=== PATIENT | male | born 1960 | race American Indian/Alaskan Native ===

== ENCOUNTER 2017-12-25 16:46 | Emergency (ER) | payer MEDICARE, OTHER ==
[2017-12-25 16:46] VITALS: BMI 20.1
[2017-12-25 16:52] VITALS: RESP 18; O2SAT 99
--- NOTE | 2017-12-25 18:05 | ED PDOC ---
Arrival/HPI - General Historian: Patient, Family - History of Present Illness Time/Duration: < week Symptom Onset: Sudden Symptom Course: Improving Activities at Onset: Other (drinking alcohol) <Min Levine - Last Filed: 12/25/17 19:11> - History of Present Illness Context: Home <Tommie Grant - Last Filed: 12/25/17 19:38> - General Chief Complaint: Trauma Time Seen by Provider: 12/25/17 17:03 - History of Present Illness Narrative History of Present Illness (Text): 12/25/17 17:59 57 year-old male with a PMH of gastric cancer (which has been in remission for 4 years) and alcoholic pancreatitis who presnts to the ED after he fell and hit the right side of his face and right shoulder on Saturday. Patient states prior to the fall, he had drank four 24oz beers. After falling, patient lost consciousness briefly but was able to wake up and walk home. Since Saturday, patient has been icing his face and states it is feeling better. He also states that his right shoulder pain is improving. He came in to seek treatment today because of his daughter who is concerned and insisted that he come get checked out. Patient states that this is not the first time he has fallen after drinking and recalled a fall 3 years ago where he suffered a punctured lung. Patient admitted to dizziness on standing but this has been going on since before the fall. Patient denied blurry vision, chest pain, SOB, nausea/vomiting , abdominal pain, and numbness or tingling in his extremities. (Min Levine) Past Medical History - Provider Review Nursing Documentation Reviewed: Yes - Infectious Disease Hx of Infectious Diseases: None - Tetanus Immunization Tetanus Immunization: Unknown - Cardiac Hx Cardiac Disorders: No - Pulmonary Hx Respiratory Disorders: Yes Hx Pneumonia: Yes Hx Tuberculosis: (PT has recent history of TB exposure) - Neurological Hx Neurological Disorder: No - HEENT Hx HEENT Disorder: No - Renal Hx Renal Disorder: No - Endocrine/Metabolic Hx Endocrine Disorders: No - Hematological/Oncological Hx Blood Disorders: Yes Hx Anemia: Yes Hx Blood Transfusions: Yes Hx Cancer: Yes (stomach) - Integumentary Hx Dermatological Disorder: No - Musculoskeletal/Rheumatological Hx Musculoskeletal Disorders: No - Gastrointestinal Hx Gastrointestinal Disorders: Yes Hx Bowel Surgery: Yes (Gastric cancer sx 2011) Hx Pancreatitis: Yes Other/Comment: stomach ca - Genitourinary/Gynecological Hx Genitourinary Disorders: No - Psychiatric Hx Psychophysiologic Disorder: No Hx Substance Use: No - Surgical History Other/Comment: stomach vx - Anesthesia Hx Anesthesia: Yes Hx Anesthesia Reactions: No Hx Malignant Hyperthermia: No - Suicidal Assessment Feels Threatened In Home Enviroment: No <Min Levine - Last Filed: 12/25/17 19:11> - Travel History Have you recently traveled outside [place] w/in the past 3 mons?: No - Past History Past History: No Previous <Tommie Grant - Last Filed: 12/25/17 19:38> Family/Social History - Physician Review Nursing Documentation Reviewed: Yes Family/Social History: No Known Family HX Smoking Status: Former Smoker Hx Alcohol Use: Yes (4 cans of beer daily) Frequency of alcohol use: Daily Hx Substance Use: No <Min Levine - Last Filed: 12/25/17 19:11> Allergies/Home Meds <Min Levine - Last Filed: 12/25/17 19:11> <Tommie Grant - Last Filed: 12/25/17 19:38> Allergies/Adverse Reactions: Allergies aspirin Allergy (Verified 12/25/17 16:50) VOMITING ibuprofen Allergy (Verified 12/25/17 16:50) RASH Review of Systems - Physician Review All systems were reviewed & negative as marked: Yes - Review of Systems Constitutional: absent: Weight Change, Fevers, Night Sweats Eyes: absent: Vision Changes, Photophobia, Eye Pain ENT: absent: Hearing Changes, Sore Throat Respiratory: absent: SOB, Cough Cardiovascular: absent: Chest Pain, Edema Gastrointestinal: absent: Abdominal Pain, Nausea, Vomiting Genitourinary Male: absent: Dysuria, Frequency Musculoskeletal: Arthralgias. absent: Back Pain, Neck Pain, Joint Swelling Skin: absent: Rash, Pruritis Neurological: Dizziness. absent: Headache, Focal Weakness, Facial Droop Endocrine: absent: Diaphoresis, Polyuria Hemo/Lymphatic: absent: Adenopathy, Easy Bleeding Psychiatric: absent: Anxiety, Depression <Min Levine - Last Filed: 12/25/17 19:11> Physical Exam Vital Signs Reviewed: Yes Temperature: Afebrile Blood Pressure: Normal Pulse: Regular Respiratory Rate: Normal Appearance: Positive for: Comfortable, Unkept Pain Distress: Mild Mental Status: Positive for: Alert and Oriented X 3 - Systems Exam Head: Present: Ecchymosis (periorbital ecchymoses bilaterally), Abrasion Pupils: Present: PERRL Extroacular Muscles: Present: EOMI Conjunctiva: Present: Injected, Other (conjunctival hemorrhage on right). No: Icteric Mouth: Present: Dry Nose (External): Present: Atraumatic Neck: Present: Normal Range of Motion. No: Meningeal Signs, JVD Respiratory/Chest: Present: Clear to Auscultation. No: Wheezes, Rales, Rhonchi Cardiovascular: Present: Regular Rate and Rhythm, Normal S1, S2. No: Murmurs, Rub, Gallop Abdomen: Present: Normal Bowel Sounds. No: Tenderness, Rebound, Guarding Back: Present: Normal Inspection Upper Extremity: Present: Normal ROM, NORMAL PULSES, Other (minor abrasions on shoulders bilaterally R > L). No: Edema, Temperature Abnormalties Lower Extremity: Present: Normal Inspection, Normal ROM. No: Edema Neurological: Present: Speech Normal, Motor Func Grossly Intact, Normal Sensory Function, Norm Deep Tendon Reflexes Skin: Present: Warm, Dry Psychiatric: Present: Alert, Oriented x 3 <Min Levine - Last Filed: 12/25/17 19:11> Vital Signs Temp Pulse Resp BP Pulse Ox 12/25/17 19:14 98.4 F 84 18 128/84 99 12/25/17 16:52 98.7 F 87 18 149/89 99 Medical Decision Making - Lab Interpretations I have reviewed the lab results: Yes Interpretation: Abnormal lab values <Min Levine - Last Filed: 12/25/17 19:11> Re-evaluation Time: 19:05 Reassessment Condition: Re-examined, Improved - RAD Interpretation Lead Blender: Radiologist <Tommie Grant - Last Filed: 12/25/17 19:38> ED Course and Treatment: 12/25/17 18:54 CT head and CXR negative for acute findings. Patient is without symptoms currently. Will plan on discharge with close follow up to PCP. We educated patient about effects of chronic alcohol abuse on his health and encouraged him to drink less. 12/25/17 19:11 Visual acuity test completed and within normal limits. Patient ready for discharge. (Min Levine) 12/25/17 In agreement with resident note, which includes further HPI details. Patient was seen and evaluated with resident, came up with plan and treatment together. I performed the hx and physical exam of the patient and discussed their mgt with the RESIDENT. I reviewed the RESIDENT's NOTE and agree with the assessment and plan of care. focus exam: Head - NC/AT, no gross swelling noted face - old right inferior periorbital region skin abrasion with b/l mild periorbital ecchymosis noted, NO orbital tenderness noted on exam; no gross deformities noted EYE - PERRLA, EOMI, sclera anicteric, noted right sclera hemorrhage; visual field intact b/l, no photophobia NECK - intact ROM, no step off, no midline tenderness Neuro - CNII-XII WNL, no facial asymmetries, no slurr speech, oriented x 3, cooperative, no etoh detected on breath pt is made aware of his medical results pt is encouraged cessation of alcohol use pt will f/u as directed pt will be discharged home (Tommie Grant) - Lab Interpretations Lab Results: 12/25/17 18:20 12/25/17 18:20 Lab Results 12/25/17 18:59: Urine Opiates Screen Negative, Urine Methadone Screen No result , Ur Barbiturates Screen Negative, Ur Phencyclidine Scrn Negative, Ur Amphetamines Screen Negative, U Benzodiazepines Scrn Negative, U Oth Cocaine Metabols Negative, U Cannabinoids Screen Negative 12/25/17 18:20: Alcohol, Quantitative 65 H 12/25/17 18:20: Sodium 139, Potassium 4.2, Chloride 101, Carbon Dioxide 26, Anion Gap 17, BUN 6 L, Creatinine 0.6 L, Est GFR ( Amer) > 60, Est GFR ( Non-Af Amer) > 60, Random Glucose 89, Calcium 9.8, Phosphorus 3.9, Magnesium 1.9 , Total Bilirubin 0.8, AST 242 H, ALT 98 H, Alkaline Phosphatase 136 H, Total Creatine Kinase 154, Total Protein 8.4 H, Albumin 4.5, Globulin 3.8, Albumin/ Globulin Ratio 1.2, Lipase 222 12/25/17 18:20: WBC 3.9 L, RBC 4.13, Hgb 13.1 L, Hct 37.4 L, MCV 90.6, MCH 31.7 , MCHC 35.0, RDW 13.7, Plt Count 142, MPV 8.8, Gran % 39.8 L, Lymph % (Auto) 35.6 H, [place] % (Auto) 21.6 H, Eos % (Auto) 2.0, Baso % (Auto) 1.0, Gran # 1.56, Lymph # (Auto) 1.4, [place] # (Auto) 0.9 H, Eos # (Auto) 0.1, Baso # (Auto) 0.04, Neutrophils % (Manual) Pending, Lymphocytes % (Manual) Pending, Monocytes % ( Manual) Pending - RAD Interpretation Narrative RAD Interpretations (Text): 12/25/17 19:03 CT HEAD WITHOUT CONTRAST: Creator : Dianna Lin MD FINDINGS: HEMORRHAGE: No intracranial hemorrhage. BRAIN: There are mild chronic microangiopathic changes. There is no mass, mass effect or abnormal extra-axial fluid collection. There is no territorial infarction. The midline sagittal structures are normal. VENTRICLES: Unremarkable. No hydrocephalus. There is mild age-related global parenchymal volume loss and proportionate enlargement of the ventricles and cortical sulci. CALVARIUM: There is no calvarial fracture or extracranial soft tissue swelling. PARANASAL SINUSES: Predominantly clear. MASTOID AIR CELLS: Predominantly clear. OTHER FINDINGS: None. IMPRESSION: No acute intracranial abnormality. Mild chronic microangiopathic changes and mild age-related global parenchymal volume loss. 12/25/17 19:05 Chest X-ray: Creator : Butch Villaseñor MD FINDINGS: LUNGS:Hyperinflation, manifestations of COPD. No active pulmonary disease. PLEURA: No significant pleural effusion identified, no pneumothorax apparent. CARDIOVASCULAR: Normal. OSSEOUS STRUCTURES: No significant abnormalities. VISUALIZED UPPER ABDOMEN: Normal. OTHER FINDINGS: None. IMPRESSION: No active disease. No significant interval change compared to the prior examination(s). (Tommie Grant) Radiology Orders: 12/25/17 17:39 HEAD W/O CONTRAST [CT] Urgent CHEST PORTABLE [RAD] Stat - Medication Orders Current Medication Orders: Discontinued Medications Tetanus/Reduced Diphtheria/Acell Pertussis (Boostrix Vaccine Inj) 0.5 ml IM .ONCE ONE Stop: 12/25/17 18:51 Last Admin: 12/25/17 19:23 Dose: 0.5 ml MAR Immunization Data Document 12/25/17 19:23 SRE (Rec: 12/25/17 19:23 SRE [id number]) Immunization Data Vaccine Information Sheet Given Yes Immunization Registry Document 12/25/17 19:23 SRE (Rec: 12/25/17 19:23 SRE [id number]) Immunization Registry Consent Date 12/25/17 Disposition/Present on Arrival - Present on Arrival Any Indicators Present on Arrival: No History of DVT/PE: No History of Uncontrolled Diabetes: No Urinary Catheter: No History of Decub. Ulcer: No History Surgical Site Infection Following: None - Disposition Have Diagnosis and Disposition been Completed?: Yes Disposition Time: 19:08 Patient Plan: Discharge <Min Levine - Last Filed: 12/25/17 19:11> <GrantTommie - Last Filed: 12/25/17 19:38> - Disposition Diagnosis: Post concussive syndrome, ETOH abuse, Elevated liver function tests, Head injury, Facial contusion Disposition: HOME/ ROUTINE Condition: FAIR Discharge Instructions (ExitCare): Postconcussion Syndrome, Alcohol Abuse and Alcoholism (DC), Effects of Alcohol on Your Health Print Language: ROMANSH Additional Instructions: Make sure to see your doctor in 1-2 days DRINK PLENTY OF FLUIDS STOP DRINKING ALCOHOL take your medications as prescribed RETURN TO ED IF worse pain, cant breath, persistent vomiting, high fever >101- 102 for hours, altered behavior, slurr speech, facial changes, focal weakness ( arm/leg or both), unable to urinate, heavy/persistent bleeding, passing out, chest pain, or other medical emergencies Referrals: PCP,NO [Non-Staff] - Follow up with primary [employer] [facility] [Outside] - Follow up with primary [facility] [Outside] - [place] up with [place] [facility] [place] - Follow up with primary Forms: [employer] [facility] (B[place]ladeshi)
[2017-12-25 18:41] LABS: BASO # 0.04 K/mm3 (0.0-2.0); EOS # 0.1 (0.0-0.7); GRAN # 1.56 (1.4-6.5); GRAN % 39.8 % (50.0-68.0); HEMOGLOBIN 13.1 g/dL (14.0-18.0); LYMPH # 1.4 (1.2-3.4); LYMPH % 35.6 % (22.0-35.0); MEAN CELL VOLUME 90.6 fl (80.0-105.0); MEAN CORPUSCULAR HEMOGLOBIN 31.7 pg (25.0-35.0); MEAN PLATELET VOLUME 8.8 fl (7.0-11.0); MONO # 0.9 (0.1-0.6); MONO % 21.6 % (1.0-6.0); PLATELET COUNT 142 10^3/uL (120.0-450.0); RBC 4.13 10^6/uL (3.5-6.1); RED CELL DISTRIBUTION WIDTH 13.7 % (11.5-14.5); WHITE BLOOD COUNT 3.9 10^3/ul (4.5-11.0)
--- NOTE | 2017-12-25 18:42 | RAD ---
Date of service: 12/25/2017 HISTORY: hx trauma COMPARISON: 02/02/2015 FINDINGS: LUNGS: Hyperinflation, manifestations of COPD. No active pulmonary disease. PLEURA: No significant pleural effusion identified, no pneumothorax apparent. CARDIOVASCULAR: Normal. OSSEOUS STRUCTURES: No significant abnormalities. VISUALIZED UPPER ABDOMEN: Normal. OTHER FINDINGS: None. IMPRESSION: No active disease. No significant interval change compared to the prior examination(s).
[2017-12-25 18:45] LABS: ALB/GLOB RATIO 1.2 (1.1-1.8); ALBUMIN 4.5 g/dL (3.0-4.8); ALT/SGPT 98 U/L (7-56); AST/SGOT 242 U/L (17-59); BLOOD UREA NITROGEN 6 mg/dL (7-21); CALCIUM 9.8 mg/dL (8.4-10.5); GFR AFRICAN-AMERICAN > 60; GFR NON-AFRICAN AMERICAN > 60; LIPASE 222 U/L (23-300)
--- NOTE | 2017-12-25 18:55 | CT ---
Date of service: 12/25/2017 PROCEDURE: CT HEAD WITHOUT CONTRAST. HISTORY: trauma COMPARISON: None available. TECHNIQUE: Axial computed tomography images were obtained through the head/brain without intravenous contrast. Radiation dose: Total exam DLP = 845.25 mGy-cm. This CT exam was performed using one or more of the following dose reduction techniques: Automated exposure control, adjustment of the mA and/or kV according to patient size, and/or use of iterative reconstruction technique. FINDINGS: HEMORRHAGE: No intracranial hemorrhage. BRAIN: There are mild chronic microangiopathic changes. There is no mass, mass effect or abnormal extra-axial fluid collection. There is no territorial infarction. The midline sagittal structures are normal. VENTRICLES: Unremarkable. No hydrocephalus. There is mild age-related global parenchymal volume loss and proportionate enlargement of the ventricles and cortical sulci. CALVARIUM: There is no calvarial fracture or extracranial soft tissue swelling. PARANASAL SINUSES: Predominantly clear. MASTOID AIR CELLS: Predominantly clear. OTHER FINDINGS: None. IMPRESSION: No acute intracranial abnormality. Mild chronic microangiopathic changes and mild age-related global parenchymal volume loss.
[2017-12-25 19:15] VITALS: BP 128/84; PULSE 84; TEMP 98.4
[2017-12-25] MEDS: TDAP Vaccine 0.5 mL Syr IM ONE (19:23)
[2017-12-25 19:32] LABS: BARBITURATES, UR NEGATIVE (NEGATIVE); BENZODIAZEPINES, UR NEGATIVE (NEGATIVE); OPIATES, UR NEGATIVE (NEGATIVE); PHENCYCLIDINE, UR NEGATIVE (NEGATIVE)
[2017-12-25 19:46] LABS: BASOPHIL 3 % (0.0-1.0); EOSINOPHIL 3 % (0.0-3.0); LYMPHOCYTE 35 % (22.0-35.0); MONOCYTE 13 % (1.0-6.0); NEUTROPHIL 46 % (50.0-70.0)
[2017-12-25 19:47] LABS: PLATELET ESTIMATE NORMAL (NORMAL)
== END 2017-12-25 19:14 | disposition home or self-care (01) ==
LOC: ED 16:46
DX: F07.81 Postconcussional syndrome (principal); S00.83XA Contusion of other part of head, initial encounter; W01.0XXA Fall on same level from slipping, tripping and stumbling without subsequent striking against object, initial encounter; Y92.89 Other specified places as the place of occurrence of the external cause; F10.10 Alcohol abuse, uncomplicated; R74.8 Abnormal levels of other serum enzymes; Z23 Encounter for immunization